=== PATIENT | female | born 1950 | race Two or more races ===

== ENCOUNTER 2023-06-12 16:49 | Inpatient (IN) | payer MEDICAID ==
[~2023-06-12] VITALS: Ht 165.1 cm; Wt 83.2 kg
[2023-06-12 18:34] LABS: BASOPHILS # (AUTO) 0.1 X10'3 (0-0.2); BASOPHILS % (AUTO) 0.9 % (0-1); EOSINOPHILS # (AUTO) 0.2 X10'3 (0-0.9); EOSINOPHILS % (AUTO) 3.3 % (0-6); HEMATOCRIT 41.1 % (35.0-45.0); HEMOGLOBIN 13.6 g/dl (12.0-16.0); LYMPHOCYTES # (AUTO) 1.8 X10'3 (1.1-4.8); LYMPHOCYTES % (AUTO) 26.1 % (21-51); MEAN CORPUSCULAR HEMOGLOBIN 29.9 PG (27.0-31.0); MEAN CORPUSCULAR HGB CONC 33.1 g/dL (33.0-36.5); MEAN CORPUSCULAR VOLUME 90.4 FL (78-98); MEAN PLATELET VOLUME 8.4 FL (7.4-10.4); MONOCYTES # (AUTO) 0.6 X10'3 (0-0.9); MONOCYTES % (AUTO) 7.9 % (2-12); NEUTROPHILS # (AUTO) 4.3 X10'3 (1.8-7.7); NEUTROPHILS % (AUTO) 61.8 % (42-75); PLATELET COUNT 241 X10'3 (140-440); RED BLOOD COUNT 4.55 X10'6 (4.20-5.60); RED CELL DISTRIBUTION WIDTH 13.6 % (11.5-14.5); WHITE BLOOD COUNT 6.9 X10'3 (4.5-11.0)
[2023-06-12 18:49] LABS: ALANINE AMINOTRANSFERASE 18 U/L (12-78); ALBUMIN 3.4 G/DL (3.4-5.0); ALBUMIN/GLOBULIN RATIO 0.9 (1.1-1.5); ALKALINE PHOSPHATASE 105 IU/L (46-116); ANION GAP 5 (8-16); ASPARTATE AMINO TRANSFERASE 17 U/L (10-37); BILIRUBIN,TOTAL 0.3 MG/DL (0.1-1.0); BLOOD UREA NITROGEN 13 MG/DL (7-18); BUN/CREATININE RATIO 11.6 (10.0-20.0); CALCIUM 8.6 MG/DL (8.5-10.1); CHLORIDE 109 MMOL/L (99-107); CREATININE 1.12 MG/DL (0.40-0.90); GLUCOSE 134 MG/DL (70-104); POTASSIUM 5.3 MMOL/L (3.5-5.1); SODIUM 145 MMOL/L (135-145); TOTAL CARBON DIOXIDE 30.8 MMOL/L (24-32); TOTAL PROTEIN 7.3 G/DL (6.4-8.2); eCRCL 40 ML/MIN; eGFR 48 ML/MIN
[2023-06-12 18:57] LABS: PRO BRAIN NATRIURETIC PEPTIDE 403 PG/ML (0-125)
[2023-06-12] MEDS ORDERED: ALBU8HFA INH (20:26)
[2023-06-12] MEDS ORDERED: ASPI-611 PO (20:26)
[2023-06-12] MEDS ORDERED: SILD25TA PO (20:26)
[2023-06-12] MEDS ORDERED: LOSA50TA64 PO (20:26)
[2023-06-12] MEDS: ondansetron/PF 4mg/2ml inj IV ONE (21:21)
[2023-06-12] MEDS: meclizine 12.5mg tablet PO ONE (21:21)
[2023-06-12] MEDS: normal saline 1000ml 1,000 ML IV SCH (21:22)
[2023-06-12] MEDS ORDERED: potassium Cl 20 mEq SR tablet PO PRN ×2 (22:10)
[2023-06-12] MEDS ORDERED: potassium Cl 40MEQ/1/2NS 520ml 520 ML IV PRN (22:10)
[2023-06-12] MEDS ORDERED: magnesium 2GM in 50ml NS 50 ML IV PRN (22:10)
[2023-06-12] MEDS ORDERED: mag hydrox/Alum hydrox/simeth 30ml oral suspension PO PRN (22:10)
[2023-06-12] MEDS ORDERED: magnesium hydroxide 30ml (MOM) UD suspension PO PRN (22:10)
[2023-06-12] MEDS ORDERED: magnesium 4gm in 100ml NS 100 ML IV PRN (22:10)
[2023-06-12] MEDS ORDERED: magnesium Cl slow-release 64mg tablet PO PRN (22:10)
[2023-06-12] MEDS ORDERED: hydrALAZINE 20mg/ml inj. IV PRN (22:50)
[2023-06-12] MEDS ORDERED: albuterol 2.5 MG/3 ML nebule NEB PRN (23:06)
[2023-06-12] MEDS: hydrALAZINE 20mg/ml inj. IV PRN (23:39)
[2023-06-12] MEDS: losartan 50mg tablet PO SCH (23:40)
[2023-06-12 23:49] LABS: URINE AMPHETAMINE SCREEN NEGATIVE (Neg); URINE BARBITUATE SCREEN NEGATIVE (Neg); URINE BENZODIAZEPINES SCREEN NEGATIVE (Neg); URINE CANNABINOID SCREEN NEGATIVE (Neg); URINE COCAINE SCREEN NEGATIVE (Neg); URINE METHADONE SCREEN NEGATIVE (Neg); URINE OPIATE SCREEN NEGATIVE (Neg); URINE PHENCYCLIDINE SCREEN NEGATIVE (Neg)
[2023-06-13] MEDS: aspirin 81mg, enteric-coated 1 TAB TABLET.DR PO SCH (00:40)
[2023-06-13 05:38] LABS: BASOPHILS % (AUTO) 0.7 % (0-1); EOSINOPHILS # (AUTO) 0.3 X10'3 (0-0.9); EOSINOPHILS % (AUTO) 4.1 % (0-6); HEMATOCRIT 39.7 % (35.0-45.0); HEMOGLOBIN 13.3 g/dl (12.0-16.0); LYMPHOCYTES # (AUTO) 1.8 X10'3 (1.1-4.8); LYMPHOCYTES % (AUTO) 28.2 % (21-51); MEAN CORPUSCULAR HEMOGLOBIN 30.1 PG (27.0-31.0); MEAN CORPUSCULAR HGB CONC 33.4 g/dL (33.0-36.5); MEAN CORPUSCULAR VOLUME 90.1 FL (78-98); MEAN PLATELET VOLUME 8.5 FL (7.4-10.4); MONOCYTES # (AUTO) 0.6 X10'3 (0-0.9); MONOCYTES % (AUTO) 9.5 % (2-12); NEUTROPHILS # (AUTO) 3.6 X10'3 (1.8-7.7); NEUTROPHILS % (AUTO) 57.5 % (42-75); PLATELET COUNT 222 X10'3 (140-440); RED BLOOD COUNT 4.41 X10'6 (4.20-5.60); RED CELL DISTRIBUTION WIDTH 13.3 % (11.5-14.5); WHITE BLOOD COUNT 6.2 X10'3 (4.5-11.0)
[2023-06-13 05:42] LABS: ALBUMIN 2.8 G/DL (3.4-5.0); ANION GAP 8 (8-16); BLOOD UREA NITROGEN 12 MG/DL (7-18); BUN/CREATININE RATIO 13.6 (10.0-20.0); CALCIUM 8.2 MG/DL (8.5-10.1); CHLORIDE 113 MMOL/L (99-107); CHOL/HDL RATIO 4.9 (0.00-4.99); CHOLESTEROL 188 MG/DL (0-200); CREATININE 0.88 MG/DL (0.40-0.90); GLUCOSE 94 MG/DL (70-104); HDL CHOLESTEROL 38 MG/DL (35-60); LDL CHOLESTEROL 129 MG/DL (50-100); POTASSIUM 3.8 MMOL/L (3.5-5.1); SODIUM 146 MMOL/L (135-145); TOTAL CARBON DIOXIDE 24.8 MMOL/L (24-32); TRIGLYCERIDES 104 MG/DL (20-135); eCRCL 51 ML/MIN; eGFR 63 ML/MIN
[2023-06-13 05:57] LABS: HEMOGLOBIN A1C 5.9 % (4.5-6.2)
[2023-06-13] MEDS: docusate sod 100mg capsule PO SCH (08:00)
[2023-06-13] MEDS: K and/or MAG REPLACEMENT MC SCH (08:00)
[2023-06-13] MEDS: enoxaparin 40mg/0.4ml syringe SUBCUT SCH (09:14)
[2023-06-13 12:01] VITALS: PULSE 47; RESP 16; O2SAT 95
[2023-06-13 20:05] VITALS: PULSE 62; RESP 16; O2SAT 97
[2023-06-13] MEDS: acetaminophen 325mg tablet PO PRN (23:23)
[2023-06-13 23:30] VITALS: BP 203/57; PULSE 58; RESP 16; RESP 18; TEMP 97.2; O2SAT 96; O2SAT 97
[2023-06-13] MEDS: hydrALAZINE 20mg/ml inj. IV ONE (23:43)
[2023-06-13] MEDS: losartan 50mg tablet PO ONE (23:49)
[2023-06-13] MEDS: amLODIPine 5mg tablet PO ONE (23:50)
[2023-06-14 01:14] VITALS: BP 170/54
[2023-06-14] MEDS: ondansetron/PF 4mg/2ml inj IV PRN (01:32)
[2023-06-14 06:00] VITALS: BP 153/52; PULSE 58; RESP 14; TEMP 97.6; O2SAT 92
[2023-06-14 07:48] LABS: BASOPHILS % (AUTO) 0.6 % (0-1); EOSINOPHILS # (AUTO) 0.1 X10'3 (0-0.9); EOSINOPHILS % (AUTO) 0.7 % (0-6); HEMATOCRIT 41.6 % (35.0-45.0); HEMOGLOBIN 13.8 g/dl (12.0-16.0); LYMPHOCYTES # (AUTO) 1.6 X10'3 (1.1-4.8); LYMPHOCYTES % (AUTO) 20.1 % (21-51); MEAN CORPUSCULAR HEMOGLOBIN 30.2 PG (27.0-31.0); MEAN CORPUSCULAR HGB CONC 33.3 g/dL (33.0-36.5); MEAN CORPUSCULAR VOLUME 90.8 FL (78-98); MEAN PLATELET VOLUME 8.4 FL (7.4-10.4); MONOCYTES # (AUTO) 0.6 X10'3 (0-0.9); MONOCYTES % (AUTO) 7.9 % (2-12); NEUTROPHILS # (AUTO) 5.7 X10'3 (1.8-7.7); NEUTROPHILS % (AUTO) 70.7 % (42-75); PLATELET COUNT 231 X10'3 (140-440); RED BLOOD COUNT 4.58 X10'6 (4.20-5.60); RED CELL DISTRIBUTION WIDTH 13.7 % (11.5-14.5); WHITE BLOOD COUNT 8.1 X10'3 (4.5-11.0)
[2023-06-14 07:52] LABS: ALBUMIN 3.1 G/DL (3.4-5.0); ANION GAP 11 (8-16); BLOOD UREA NITROGEN 20 MG/DL (7-18); BUN/CREATININE RATIO 16.4 (10.0-20.0); CALCIUM 8.6 MG/DL (8.5-10.1); CHLORIDE 107 MMOL/L (99-107); CREATININE 1.22 MG/DL (0.40-0.90); GLUCOSE 100 MG/DL (70-104); POTASSIUM 4.4 MMOL/L (3.5-5.1); SODIUM 142 MMOL/L (135-145); TOTAL CARBON DIOXIDE 24.3 MMOL/L (24-32); eCRCL 37 ML/MIN; eGFR 43 ML/MIN
[2023-06-14 08:40] VITALS: RESP 16; O2SAT 92
[2023-06-14] MEDS: sildenafil citrate 20mg tablet PO SCH (08:44)
[2023-06-14 11:00] VITALS: BP 165/59; PULSE 53; RESP 12; TEMP 97.8; O2SAT 95
[2023-06-14] MEDS: chlorthalidone 25mg tablet PO SCH (11:02)
[2023-06-14] MEDS ORDERED: LOSA100T58 PO (11:44)
[2023-06-14] MEDS ORDERED: AMLO-888 PO (11:44)
[2023-06-14] MEDS ORDERED: CHLO25TA11 PO (11:44)
[2023-06-14] MEDS ORDERED: losartan 50mg tablet PO SCH (20:00)
== END 2023-06-14 15:48 | disposition home or self-care (01) | DRG 201 ==
LOC: ER 16:51 → ED HOLD 22:10 → PCU 3S 06-13 23:05
PROVIDERS: ADMIT Surgery; ATTEND Family Medicine
PROC: B33RZZZ Magnetic Resonance Imaging (MRI) of Intracranial Arteries (ICD-10-PCS; principal; 2023-06-14)
DX: R00.1 Bradycardia, unspecified (principal); B57.2 Chagas' disease (chronic) with heart involvement; I10 Essential (primary) hypertension; I16.0 Hypertensive urgency; Z90.49 Acquired absence of other specified parts of digestive tract; Z79.899 Other long term (current) drug therapy
CPT/HCPCS: 36415; 70450; 70544; 70547; 70551; 71045; 80048; 80053; 80061; 80305; 83036; 83735; 83880; 84132; 84443; 84484; 85025; 87081; 93306; 93880; 94760; 99285; G0378; J0360; J1650; J2405; J7030; J8597